=== PATIENT | female | born 1995 | race Caucasian/White ===

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

== ENCOUNTER → 2017-06-15 | Outpatient (CLI) | payer OTHER ==
--- NOTE | 2017-06-15 21:55 | DIAGNOSTIC IMAGING REPORT ---
L LOWER EXT JOINT WITHOUT CLINICAL HISTORY: 22 years-old Female presenting with KNEE PAIN, lateral left knee pain, no known injury. TECHNIQUE: Multisequence, multiplanar MR imaging of the left knee was performed without the use of intravenous contrast. IV contrast: None. COMPARISON: 09/02/2016. FINDINGS: Localizer images: Unremarkable. Previously noted focal T2 hypointense, T1 hypointense subchondral abnormality in the mid weightbearing portion of the medial femoral condyle is unchanged in appearance. No associated bony edema. No bone marrow edema elsewhere in the knee. Articular cartilage intact. Medial and lateral menisci intact. Anterior and posterior cruciate ligaments intact. Medial collateral ligament intact. Lateral collateral ligament complex including the biceps femoris tendon, fibular collateral ligament, popliteus tendon, and iliotibial band intact. Quadriceps tendon and patellar tendons intact. No significant knee joint effusion. No popliteal cyst. Normal muscle bulk and signal intensity. IMPRESSION: 1. Chronic abnormality along the subchondral region of the medial femoral condyle likely represents either an old healed osteochondral lesion or focal fibrous lesion. 2. No acute injury or other significant abnormality in the knee. Electronically signed by: Satinder Frances M.D. 06/15/2017 9:54 PM Dictated Date/Time: 06/15/2017 9:46 PM
== END | disposition home or self-care (01) ==
LOC: C.MRI 20:48
PROVIDERS: ATTEND Internal Medicine
DX: M25.562 Pain in left knee (principal)

== ENCOUNTER → 2017-09-28 | Outpatient (CLI) | payer OTHER | END | disposition home or self-care (01) | LOC: C.RDSM 15:56 | PROVIDERS: ATTEND Physical Medicine & Rehabilitation Sports Medicine | DX: S93.409A Sprain of unspecified ligament of unspecified ankle, initial encounter (principal); X58.XXXA Exposure to other specified factors, initial encounter ==